=== PATIENT | female | born 1955 | race Caucasian/White ===

== ENCOUNTER 2017-02-11 02:37 | Inpatient (IN) | payer BC ==
--- NOTE | ~2017-02-11 | CO ---
Unit #: [id number] #: [id number] Patient: AVE YOST [id number] [facility]. [address] [place], [place] [address] [id number] I MR#: [id number] NAME: AVE YOST. ROOM: 322 Age: 61 Sex: F Admission Date: 02/11/2017 : 1955 Attending Physician: Davida Min M.D. Consultation Date: 02/11/2017 CONSULTATION REPORT REASON FOR CONSULTATION Anemia. HISTORY OF PRESENT ILLNESS Ms. Yost is a pleasant 61-year-old white female. The patient has presented with history of near syncope without actually having blackout as well as low blood pressure. In addition, she was found to have heme-positive stool and worsening anemia. She mentions to me that she had a colonoscopy in 10/[address] Rodriguez in [place], which was found to be normal. She also had an upper endoscopy at the same time. There is no history of overt GI bleed in the form of hematemesis, melena, or hematochezia. PAST MEDICAL HISTORY Significant for hypertension, hyperlipidemia, iron-deficiency anemia requiring transfusions, peripheral arterial disease, mild valvular heart disease followed up with Dr. Ortiz, esophageal stricture that required dilation, history of colonic polyps in the past. PAST SURGICAL HISTORY Included appendectomy, tonsillectomy, oophorectomy. MEDICATIONS At home included Protonix, lisinopril, Lipitor, Plavix, aspirin, Biotin, Chel, iron gluconate, vitamin B12. ALLERGIES She is allergic to hydrocodone, oxycodone, hydrochlorothiazide, Zofran, erythromycin, and sulfonamides. FAMILY HISTORY None of colon, pancreatic cancer, or liver disease. REVIEW OF SYSTEMS Detailed review of organ systems is significant for lightheadedness, but no true syncope, history of low blood pressure. No history of seizures or chest pain. No history of cough, expectoration, or hemoptysis. No history of dysuria, hematuria, or pyuria. No history of focal seizures or extremity weakness. Rest of review of organ systems is unremarkable. PHYSICAL EXAMINATION GENERAL: She is alert and oriented, and appears comfortable. VITAL SIGNS: Stable with a temperature of 97.7, pulse is 70 per minute and regular, respiratory rate is 16, blood pressure is 135/66. She weighs Unit #: [id number] #: [id number] Patient: AVE YOST 164 pounds and I do not have any baseline weight. HEENT: She has mild pallor. There being no icterus, lymphadenopathy, or peripheral edema. CARDIOVASCULAR: Normal heart sounds. No murmurs on auscultation. LUNGS: Reveal normal breath sounds. Good air entry. ABDOMEN: Soft and nontender. Liver and spleen are not palpable. Bowel sounds are normal. DIAGNOSTIC STUDIES LABORATORY RESULTS: Shows admission hemoglobin of 9.0, which dropped to 7.6. Baseline hemoglobin is not available. Red cell indices are normochromic and normocytic. White count and platelet counts are normal. Serum chemistry shows a BUN of 40 and creatinine 1.2. Albumin is 4.6. LFTs are otherwise normal. CLINICAL IMPRESSION The patient with anemia most likely from iron deficiency. We need iron studies and B12 folate levels, also obtain stool for occult blood. Also, the patient will require an upper endoscopy and a push enteroscopy tomorrow. There is little reason to repeat colonoscopy as this was done only recently in 10/2016. The purpose of the examination is to look for any angiodysplasia or AVMs, that might be missed in the previous examination. The above plan was discussed with the patient and she was reassured. Thank you for asking me to see this pleasant woman. I appreciate the consult. Dictated by... Monica Mendez/byron TD: 02/12/2017 18:32 JOB #: [id number] CC: Monica Sow M.D. CONSULTATION REPORT Page 1 of 1 X Robin Alvares MD CONSULTATION REPORT
--- NOTE | ~2017-02-11 | OR ---
Unit #: [id number] #: [id number] Patient: AVE YOST [id number] [facility]. [place] [id number] [facility]. [place], [place] [address] [id number] I MR#: [id number] NAME: AVE YOST. ROOM: 322 Date of Procedure: 02/12/2017 Admission Date: 02/11/2017 Surgeon: Robin Alvares M.D. : 1955 Attending Physician: Davida Min M.D. OPERATIVE REPORT PREOPERATIVE DIAGNOSES Iron-deficiency anemia. The patient was admitted with syncope. PROCEDURES PERFORMED Push enteroscopy and biopsy from the jejunum. POSTOPERATIVE DIAGNOSES Completely normal examination up to proximal jejunum. No angiodysplasias or mucosal abnormalities were present. RECOMMENDATIONS The patient is being given third dose of intravenous iron infusion tomorrow morning. She also needs 1 unit of packed cells tonight as the hemoglobin has dropped to 7.5. She can be discharged home tomorrow morning and should follow up with her GI doctor, Dr. Brown. SEDATION USED MAC. DESCRIPTION OF PROCEDURE Following detailed explanation of the potential risks and complications of an upper endoscopy and a push enteroscopy, namely perforation, bleeding, and complication related to sedation, the patient was brought to GI lab and laid in the left lateral decubitus position. A pediatric colonoscope was used for push enteroscopy. Lubricated tip of the Olympus video pediatric colonoscope was inserted through the oral cavity into the esophagus. The entire esophageal mucosa was examined and appeared normal. Z-line was nicely demarcated, there being no esophagitis or hiatus hernia. The scope was then advanced into the gastric cavity and the latter was insufflated. Mucosa of the fundus, body, and antrum was examined and appeared unremarkable. Pylorus was intubated with visualization of the normal duodenal bulb and second and third part of the duodenum. The scope tip was navigated and advanced past duodenum into proximal jejunum and again no mucosal abnormalities were noted. No angiodysplasias were seen. Biopsies were obtained from the deep descending duodenum and sent for histology to look for any evidence of partial villous atrophy or celiac disease. The scope was then withdrawn in the antrum and retroverted, whereupon incisura, cardia, and greater curve was examined and no additional findings were noted. The scope was then withdrawn in the distal esophagus. Entire esophageal mucosa was examined all the way up to pharynx. No additional findings were noted. The patient tolerated the procedure without any postprocedure complications. Unit #: [id number] #: [id number] Patient: AVE YOST Dictated by..Monica Balderrama/byron TD: 02/12/2017 17:15 JOB #: [id number] CC: Davida Min M.D. OPERATIVE REPORT Page 1 of 1 X Robin Alvares MD X PROCEDURE OPERATIVE NOTE
--- NOTE | ~2017-02-11 | CR72 ---
[facility] A Service of [facility] & [facility] RADIOLOGY TEXT RESULTS PATIENT: AVE YOST LOCATION: [facility] 322-01 : 53 UNIT #: [id number] AGE: [address]: Davida Min MD SEX: F ORDER DR: [id number] [facility] [address] [place], [place] [address] [id number] I MR#: [id number] Acc #: [id number] NAME: AVE YOST : 1955 SEX: F STUDY DATE/TIME: 02/11/2017 2:16 UNIT: CEDOF ROOM: 44057 STUDY DESCRIPTION: CR Chest Single View Portable Attending Physician: Ave Stark M.D. Ordering Physician: Shaquille Hassan D.O. Primary Care Physician: No Primary Care Physician MEDICAL IMAGING REPORT This report is preliminary unless electronic signature is present EXAM AP portable chest 02/11/2017 HISTORY 61-year-old female in the ED complaining of weakness and lightheadedness today. Low blood pressure. TECHNIQUE AP portable upright chest x-ray. FINDINGS Heart size and pulmonary vascularity are normal. The lungs are expanded and clear. No pulmonary infiltrate or pleural effusion is visible. Benign calcified granulomas in the right mid lung, right hilum and middle mediastinum. IMPRESSION No active disease. Dictated by... Alexy White M.D. THIS IS AN ELECTRONICALLY VERIFIED REPORT Alexy White M.D. at 02/11/2017 9:54 PM RGW/hiwot TD: 02/11/2017 07:26 JOB #: [id number] MEDICAL IMAGING REPORT Page 1 of 1 COPY
--- NOTE | ~2017-02-11 | DS ---
Unit #: [id number] #: [id number] Patient: AVE YOST [id number] [address] [address] [id number] I MR#: [id number] NAME: AVE YOST. ROOM: 322 Age: 61 Sex: F Admission Date: 02/11/2017 : 1955 Discharge Date: Attending Physician: Davida Min M.D. Primary Care Physician: Primary Care Physician No DISCHARGE SUMMARY DISCHARGE DIAGNOSES 1. Pbiti-nv-cdqwvcd iron deficiency anemia, status post EGD which is negative. 2. Lightheadedness secondary to low blood pressure on admission. 3. Hypertension. 4. History of chronic iron deficiency requiring iron infusions in the past, patient is following with Dr. Meza. 5. Hyperlipidemia. 6. Peripheral vascular disease status post bilateral carotid endarterectomies. 7. Mild vascular heart disease following with Dr. Ortiz. 8. Esophageal stricture requiring dilatation in the past. 9. History of colon polyps requiring snaring. She had last colonoscopy in last October which was normal. CONSULTATIONS Dr. Alvares PROCEDURES The patient had EGD which is normal. DIAGNOSTIC STUDIES LABORATORY: Sodium 134, potassium 4.0, creatinine 1.0, WBCs 9.0, hemoglobin 9.9, platelets 332. Ferritin 40. IMAGING: CAT scan of the head, no acute intracranial abnormalities. ALLERGIES Sulfa, hydrocodone, oxycodone, hydrochlorothiazide, erythromycin, simvastatin DISCHARGE MEDICATIONS 1. Chel 180 mg p.o. daily 2. Lipitor 40 daily 3. Lisinopril 20 mg p.o. daily 4. Ferrous gluconate 324 p.o. daily 5. Aspirin 81 mg daily 6. Plavix 75 daily 7. Protonix 40 daily 8. Biotin 5000 mcg p.o. daily 9. Vitamin B12 with calcium one tablet daily HOSPITAL COURSE [age] year old admitted because of dizziness found to have low Unit #: [id number] #: [id number] Patient: AVE YOST hemoglobin: 1. Bbshi-wa-ddpmwzo iron deficiency anemia, patient received blood transfusion and iron transfusion, the patient had EGD which is negative, patient seen by Dr. Alvares, he is okay for the patient to be discharged and also Dr. Alvares is okay for her to restart on her aspirin and Plavix. She is following with Dr. Meza for iron deficiency as an outpatient. I will request for her to follow with him again. 2. Dizziness, most likely secondary to low blood pressure but currently her dizziness is better and blood pressure stable. 3. Also her dizziness could be secondary to anemia. 4. Discharge home and follow with family physician in one week and follow with Dr. Meza in two weeks' time. Dictated by... Davida Min M.D. BUZZ/lionel TD: 02/13/2017 12:28 JOB #: [id number] DISCHARGE SUMMARY Page 1 of 1 X Davida Min MD X DISCHARGE SUMMARY
--- NOTE | ~2017-02-11 | CT71 ---
[facility] A Service of [facility] & [facility] RADIOLOGY TEXT RESULTS PATIENT: AVE YOST LOCATION: [facility] 322-01 : 53 UNIT #: [id number] AGE: [address]: Davida Min MD SEX: F ORDER DR: [id number] [facility] [address] [place], [place] [address] [id number] I MR#: [id number] Acc #: [id number] NAME: AVE YOST. : 1955 SEX: F STUDY DATE/TIME: 02/11/2017 2:57 UNIT: CEDOF ROOM: 25820 STUDY DESCRIPTION: CT Head Wo Contrast Attending Physician: Davida Min M.D. Ordering Physician: Shaquille Hassan D.O. Primary Care Physician: Primary Care Physician No MEDICAL IMAGING REPORT This report is preliminary unless electronic signature is present EXAM CT head, noncontrast, 02/11/2017 HISTORY 61-year-old female in the ED complaining of 2-day history of dizziness, headaches, lightheadedness and weakness. Low blood pressure is noted. TECHNIQUE CT examination of the head was performed without IV contrast. This CT exam was performed with one or more of the following radiation dose reduction techniques: automatic exposure control, adjustment of mA and/or kV according to patient size, and iterative reconstruction. FINDINGS The examination is negative. No evidence of intracranial hemorrhage, mass, mass effect, cerebral edema, hydrocephalus or additional abnormality. IMPRESSION Negative head CT examination. Dictated by... Alexy White M.D. THIS IS AN ELECTRONICALLY VERIFIED REPORT Alexy White M.D. at 02/11/2017 9:54 PM Dilan TD: 02/11/2017 08:01 JOB #: [id number] MEDICAL IMAGING REPORT Page 1 of 1 COPY
--- NOTE | ~2017-02-11 | EKG ---
PATIENT: R[address]IK[address] AVE UNIT #: [id number] Ventricular Rate: 77 BPM Atrial Rate: 77 BPM P-R Interval: 162 ms QRS Duration: 80 ms Q-T Interval: 384 ms QTC Calculation(Bezet): 434 ms P Fairton: 69 degrees Calculated R Fairton: 52 degrees Calculated T Fairton: 53 degrees Diagnosis Line: Normal sinus rhythm Diagnosis Line: Nonspecific ST abnormality Diagnosis Line: Otherwise normal ECG Diagnosis Line: No previous ECGs available Diagnosis Line: Confirmed by ENRIQUE BLAKE MD ([id number]) on 02/12/2017 Diagnosis Line: 9:34:10 AM INTERPRETING MD: HAYDEN VALENCIA
--- NOTE | ~2017-02-11 | HP ---
Unit #: [id number] #: [id number] Patient: AVE YOST L [id number] [address] [place], [place] [address] [id number] MR#: [id number] NAME: AVE YOST ROOM: Age: 61 Sex: F Admission Date: 02/11/2017 : 1955 Attending Physician: Shaquille Hassan D.O. Primary Care Physician: No Primary Care Physician HISTORY AND PHYSICAL CHIEF COMPLAINT Lightheadedness, low blood pressures, heme positive stool and worsening anemia. HISTORY OF PRESENT ILLNESS This pleasant 61-year-old female with hypertension, iron deficiency anemia, peripheral vascular disease is admitted for lightheadedness. The patient states that she was well until five days ago and she began to feel somewhat lightheaded, yesterday felt worse and checked her blood pressure. Her systolic blood pressures are running between eighties to low one hundreds. She denies any other symptoms with the above, particularly no chest pain, shortness of breath, palpitations or obvious GI bleeding. She presented to this emergency department last evening where her hemoglobin is 9 down from her usual hemoglobin of 10. She is heme positive on rectal exam. Labs are notable for a BUN of 40, although the patient states that she has been eating and drinking well. The patient does have a history of polyps in the colon which were snared but states that her last colonoscopy in October was negative. She did, however, require cauterization on an EGD in October and dilation of her esophagus. She does take Plavix and aspirin for peripheral vascular disease. PAST MEDICAL HISTORY 1. Hypertension. 2. Iron deficiency anemia requiring iron infusions in the past. 3. Hyperlipidemia. 4. Peripheral vascular disease status post bilateral carotid endarterectomies. 5. Mild valvular heart disease followed by Dr. Danyel Ortiz with negative stress test 2014. 6. Esophageal strictures requiring dilation. The patient states that on her last EGD she did require cauterization. 7. History of colonic polyps requiring snaring of the polyps. The patient reports that her last colonoscopy in October was clear. 8. Oral surgery. 9. Appendectomy. 10. Tonsillectomy. 11. Oophorectomy. SOCIAL HISTORY The patient lives with her dog and cat. She stopped smoking two years ago. He seldom drinks alcohol. Unit #: [id number] #: [id number] Patient: AVE YOST FAMILY HISTORY Negative for CAD. ALLERGIES Sulfa, hydrocodone, oxycodone, HCTZ, Zofran and erythromycin. HOME MEDICATIONS 1. Protonix 40 mg daily. 2. Lisinopril 20 mg daily. 3. Lipitor 40 mg daily. 4. Plavix 75 mg daily. 5. Aspirin 81 mg daily. 6. Biotin 5,000 mcg daily. 7. Chel 180 mg daily. 8. Iron gluconate 324 mg daily. 9. Vitamin B12 and calcium daily. REVIEW OF SYSTEMS Notable for lightheadedness, low blood pressure, hypertension, iron deficiency anemia, hyperlipidemia, peripheral vascular disease, polyps in the colon, esophageal strictures, above-mentioned surgeries. All other systems are reviewed and are otherwise negative. PHYSICAL EXAMINATION GENERAL APPEARANCE: A pleasant, mildly obese, 61-year-old female currently in no acute distress. VITAL SIGNS: Temperature 97.9. Pulse 86. Respirations 16. Blood pressure 166/64. O2 saturation 99% on room air. HEENT: Eyes: PERRLA. Extraocular muscles are intact. Pharynx is benign. NECK: Supple without adenopathy or thyromegaly. Bilateral carotid bruits noted. CHEST: Clear. CARDIAC: Normal S1, S2 without S3, S4 or murmur. ABDOMEN: Bowel sounds are present. No hepatosplenomegaly, tenderness or masses. RECTAL: Heme positive stool in the ER. EXTREMITIES: Without clubbing, cyanosis or edema. Pedal pulses are present. NEUROLOGIC: The patient is awake, alert, oriented. Cranial nerves are intact. Equal strength throughout. DIAGNOSTIC STUDIES LABORATORY: Hematocrit 27, hemoglobin 9 up from usual hemoglobin of about 10, normal white count and platelet count, normal coags. SMA-12: BUN 40. Cardiac markers are negative. Urinalysis negative. IMAGING: Head CT: No acute disease. Chest x-ray: No acute disease. CARDIOVASCULAR: EKG: Normal sinus rhythm, rate 77, some nonspecific ST wave abnormalities noted. ASSESSMENT 1. Recent lightheadedness. Blood pressures were low yesterday. The patient is heme positive with an elevated BUN and worsening anemia. I suspect that she has some upper GI bleeding occurring. She did undergo an EGD with cauterization 10/2016 and dilation of her esophagus. 2. History of polyps in the colon but reportedly negative colonoscopy, Unit #: [id number] #: [id number] Patient: AVE YOST 10/2016. 3. History of hypertension with low blood pressure. 4. Peripheral vascular disease status post bilateral carotid endarterectomies on aspirin and Plavix. 5. Hyperlipidemia. PLAN 1. IV fluids. 2. IV proton pump inhibitor. 3. Serial hemoglobin and hematocrit and obtain a type and screen. 4. Consult GI for possible EGD. 5. Obtain old EKG and echo from Dr. Danyel Ortiz. 6. Hold lisinopril for now. 7. SCDs for DVT prophylaxis. Dictated by Ave Stark M.D. AML/bd TD: 02/11/2017 05:59 JOB #: [id number] CC: Robyn Clinton M.D. HISTORY AND PHYSICAL Page [address] MD HISTORY AND PHYSICAL
[2017-02-11 02:31] LABS: POC - CKMB <1.0 ng/mL (0.0-7.9); POC - TROPONIN <0.05 ng/mL (<=0.05)
[2017-02-11 02:36] LABS: BASOPHIL# 0.1 X10e3 (0-0.3); EOSINOPHIL# 0.3 X10e3 (0-0.7); EOSINOPHIL% 3.1 % (0.0-7.0); LYMPHOCYTE# 3.2 X10e3 (1.0-3.5); LYMPHOCYTE% 32.8 % (17.0-45.0); MEAN CELL VOLUME 91.7 FL (83-96); MEAN CORPUSCULAR HEMOGLOBIN 30.6 PG (28-34); MEAN CORPUSCULAR HGB CONC 33.3 g/dL (30-36); MEAN PLATELET VOLUME 7.9 FL (6.5-11.5); MONOCYTE# 0.8 X10e3 (0-1.0); MONOCYTE% 7.9 % (3.0-12.0); NEUTROPHIL# 5.4 X10e3 (1.5-7.1); NEUTROPHIL% 55.2 % (40-75); PLATELET COUNT 361 X10e3 (140-420); RED BLOOD COUNT 2.94 X10e (3.90-5.30); WHITE BLOOD COUNT 9.8 X10e3 (4.0-10.5)
[2017-02-11 02:40] LABS: DIFF IND NO
[2017-02-11 02:50] LABS: PARTIAL THROMBOPLASTIN TIME 24.6 SECONDS (23.5-31.3)
[2017-02-11 02:57] LABS: URINE SOURCE CLEAN CATCH
[2017-02-11 03:01] LABS: URINE APPEARANCE CLEAR; URINE BILIRUBIN NEG (NEG); URINE BLOOD NEG (NEG); URINE COLOR YELLOW; URINE GLUCOSE NEG (NEG); URINE KETONE NEG (NEG); URINE LEUKOCYTE ESTERASE TRACE (NEG); URINE NITRATE NEG (NEG); URINE PROTEIN NEG (NEG); URINE SPECIFIC GRAVITY 1.009 (1.003-1.035); URINE UROBILINOGEN 0.2 MG/DL (NEG)
[2017-02-11 03:02] LABS: ALBUMIN SERUM 4.6 g/dL (3.5-5.0); BUN/CREATININE RATIO 33.33; CALCIUM SERUM 9.7 mg/dL (8.4-10.2); CREATININE SERUM 1.2 mg/dL (0.6-1.4); GLOM FILT RATE Estimated 48.2 mL/min (>60); MAGNESIUM 2.4 mg/dL (1.6-3.0); POTASSIUM 4.6 mmol/L (3.5-5.1); PROTEIN TOTAL SERUM 7.3 g/dL (6.0-8.3)
[2017-02-11 03:03] LABS: URBCS1 AUWI 0-2 /[HPF] (0-2); URINE BACTERIA AUWI NEG (NEGATIVE); URINE SQUAMOUS EPITHELIAL CELL NONE SEEN /[HPF]
[2017-02-11 03:03] LABS: BILIRUBIN, DIRECT 0.1 mg/dL (0.0-0.2); BILIRUBIN,TOTAL 0.1 mg/dL (0.2-2.0)
[2017-02-11 03:06] LABS: CULTURE INDICATED? NO
[2017-02-11] MEDS ORDERED: LIPITOR40 MG PO (05:06)
[2017-02-11] MEDS ORDERED: PRINIVIL20 M1 PO (05:06)
[2017-02-11] MEDS ORDERED: PROTONIX PO (05:06)
[2017-02-11] MEDS ORDERED: CLOPIDOGREL75 MG PO (05:07)
[2017-02-11] MEDS ORDERED: ALLEGRA ALLERG180 MG PO (05:07)
[2017-02-11] MEDS ORDERED: ST JOSEPH ASPIR81 M1 PO (05:07)
[2017-02-11] MEDS ORDERED: FERROUS GL324 ( 36 ) PO (05:07)
[2017-02-11] MEDS ORDERED: BIOTIN2500 MCG PO (05:07)
[2017-02-11] MEDS ORDERED: CALCI PO (05:09)
[2017-02-11] MEDS ORDERED: VITAMIN B12 PO (05:09)
[2017-02-11 05:19] LABS: POC - CKMB <1.0 ng/mL (0.0-7.9); POC - TROPONIN <0.05 ng/mL (<=0.05)
[2017-02-11 08:01] LABS: BASOPHIL# 0.1 X10e3 (0-0.3); BASOPHIL% 0.9 % (0-2.5); EOSINOPHIL# 0.2 X10e3 (0-0.7); EOSINOPHIL% 3.8 % (0.0-7.0); HEMATOCRIT 23.1 % (35.0-45.0); HEMOGLOBIN 7.6 gm/dL (12.0-16.0); LYMPHOCYTE# 1.8 X10e3 (1.0-3.5); LYMPHOCYTE% 28.9 % (17.0-45.0); MEAN CELL VOLUME 92.2 FL (83-96); MEAN CORPUSCULAR HEMOGLOBIN 30.6 PG (28-34); MEAN CORPUSCULAR HGB CONC 33.2 g/dL (30-36); MEAN PLATELET VOLUME 7.9 FL (6.5-11.5); MONOCYTE# 0.6 X10e3 (0-1.0); MONOCYTE% 10.1 % (3.0-12.0); NEUTROPHIL# 3.4 X10e3 (1.5-7.1); NEUTROPHIL% 56.3 % (40-75); PLATELET COUNT 284 X10e3 (140-420); RED CELL DISTRIBUTION WIDTH 13.9 % (11.0-15.5); WHITE BLOOD COUNT 6.1 X10e3 (4.0-10.5)
[2017-02-11 08:02] LABS: DIFF IND YES
[2017-02-11 08:22] LABS: CK TOTAL 53 IU/L (26-140)
[2017-02-11 08:24] LABS: ANISOCYTOSIS SL; HYPOCHROMIA SL; MICROCYTOSIS SL; PLATELET ESTIMATE NORMAL (NORMAL)
[2017-02-11 14:36] LABS: HEMATOCRIT 24.1 % (35.0-45.0); HEMOGLOBIN 8.1 gm/dL (12.0-16.0); MEAN CELL VOLUME 92.2 FL (83-96); MEAN CORPUSCULAR HEMOGLOBIN 30.9 PG (28-34); MEAN CORPUSCULAR HGB CONC 33.6 g/dL (30-36); MEAN PLATELET VOLUME 7.5 FL (6.5-11.5); RED BLOOD COUNT 2.62 X10e (3.90-5.30); RED CELL DISTRIBUTION WIDTH 14.1 % (11.0-15.5); WHITE BLOOD COUNT 5.3 X10e3 (4.0-10.5)
[2017-02-12 05:04] LABS: HEMATOCRIT 21.8 % (35.0-45.0); HEMOGLOBIN 7.2 gm/dL (12.0-16.0); MEAN CORPUSCULAR HEMOGLOBIN 30.5 PG (28-34); MEAN CORPUSCULAR HGB CONC 33.2 g/dL (30-36); MEAN PLATELET VOLUME 7.9 FL (6.5-11.5); RED BLOOD COUNT 2.37 X10e (3.90-5.30); RED CELL DISTRIBUTION WIDTH 14.3 % (11.0-15.5); WHITE BLOOD COUNT 4.7 X10e3 (4.0-10.5)
[2017-02-12 06:10] LABS: ALBUMIN SERUM 3.4 g/dL (3.5-5.0); BILIRUBIN,TOTAL 0.4 mg/dL (0.2-2.0); BUN/CREATININE RATIO 25.55; CALCIUM SERUM 8.3 mg/dL (8.4-10.2); CREATININE SERUM 0.9 mg/dL (0.6-1.4); GLOM FILT RATE Estimated 68.1 mL/min (>60); MAGNESIUM 2.3 mg/dL (1.6-3.0); POTASSIUM 4.4 mmol/L (3.5-5.1); PROTEIN TOTAL SERUM 5.6 g/dL (6.0-8.3)
[2017-02-13 06:07] LABS: HEMATOCRIT 29.8 % (35.0-45.0); MEAN CELL VOLUME 89.3 FL (83-96); MEAN CORPUSCULAR HEMOGLOBIN 29.7 PG (28-34); MEAN CORPUSCULAR HGB CONC 33.3 g/dL (30-36); MEAN PLATELET VOLUME 7.7 FL (6.5-11.5); RED BLOOD COUNT 3.34 X10e (3.90-5.30); RED CELL DISTRIBUTION WIDTH 15.2 % (11.0-15.5)
[2017-02-13 06:14] LABS: HEMOGLOBIN 9.9 gm/dL (12.0-16.0)
[2017-02-13 07:27] LABS: CALCIUM SERUM 8.7 mg/dL (8.4-10.2); GLOM FILT RATE Estimated 59.9 mL/min (>60)
== END 2017-02-13 14:44 | disposition home or self-care (01) | DRG 812 ==
LOC: CED 02:37 → CEDOF 02:38 → C3A PCU 10:45
PROVIDERS: Emergency Medicine; Internal Medicine; Internal Medicine Gastroenterology
PROC: 0DB98ZX Excision of Duodenum, Via Natural or Artificial Opening Endoscopic, Diagnostic (ICD-10-PCS; principal; 2017-02-12 16:38)
DX: D50.9 Iron deficiency anemia, unspecified (principal); I10 Essential (primary) hypertension; R42 Dizziness and giddiness; Z88.1 Allergy status to other antibiotic agents; Z88.5 Allergy status to narcotic agent; Z88.2 Allergy status to sulfonamides; Z88.8 Allergy status to other drugs, medicaments and biological substances; K21.9 Gastro-esophageal reflux disease without esophagitis; E78.5 Hyperlipidemia, unspecified; Z87.891 Personal history of nicotine dependence; I73.9 Peripheral vascular disease, unspecified; Z86.010 Personal history of colon polyps; Z90.49 Acquired absence of other specified parts of digestive tract; Z90.721 Acquired absence of ovaries, unilateral; Z79.02 Long term (current) use of antithrombotics/antiplatelets; Z79.82 Long term (current) use of aspirin
CPT/HCPCS: 36415; 70450; 71010; 80048; 80053; 80076; 81003; 82550; 82553; 82728; 82947; 83516; 83540; 83550; 83735; 84484; 85025; 85027; 85610; 85730; 86850; 86900; 86901; 86923; 88305; 93005; 99285; C9113; J2916; P9016

== ENCOUNTER → 2017-08-10 | Outpatient (CLI) | payer BC ==
[~2017-08-10] MED LIST: ALLEGRA ALLERG180 MG PO; BIOTIN2500 MCG PO; CALCI PO; CLOPIDOGREL75 MG PO; FERROUS GL324 ( 36 ) PO; LIPITOR40 MG PO; PRINIVIL20 M1 PO; PROTONIX PO; ST JOSEPH ASPIR81 M1 PO; VITAMIN B12 PO
--- NOTE | ~2017-08-10 | CR184 ---
[facility] A Service of [facility] & [facility] RADIOLOGY TEXT RESULTS PATIENT: AVE YOST LOCATION: [facility] : 53 UNIT #: [id number] AGE: [address]: ELI RICHARDSON MD SEX: F ORDER DR: [id number] [facility] [address] [place], [place] [address] [id number] O MR#: [id number] Acc #: [id number] NAME: AVE YOST : 1955 SEX: F STUDY DATE/TIME: 08/10/2017 15:49 UNIT: [facility] ROOM: STUDY DESCRIPTION: CR Lumbar Spine Min 4 Views Attending Physician: Eli Richardson M.D. Referring Physician: Eli Richardson M.D. Ordering Physician: Eli Richardson M.D. Primary Care Physician: Eli Richardson M.D. MEDICAL IMAGING REPORT This report is preliminary unless electronic signature is present EXAM Lumbar spine 5 views, 08/10/2017 HISTORY Low back pain without sciatica for 3 weeks. No known injury. FINDINGS 5 views of the lumbar spine demonstrate no fracture. The posterior vertebral body line is intact and there is no anterolisthesis or retrolisthesis. There is mild disc space narrowing at L5-S1. Marginal osteophytes are seen throughout the lumbar spine and there is degenerative change involving articular facets. Atherosclerotic calcification of the abdominal aorta is noted. IMPRESSION Degenerative change in the lumbar spine. No acute abnormality. Dictated by... Manny Woods M.D. THIS IS AN ELECTRONICALLY VERIFIED REPORT Manny Woods M.D. at 08/11/2017 10:32 AM MARIANELA/yin TD: 08/11/2017 02:44 JOB #: [id number] MEDICAL IMAGING REPORT Page 1 of 1 COPY
== END | disposition home or self-care (01) ==
LOC: CRAD 15:30
DX: M54.5 Low back pain (principal); M47.896 Other spondylosis, lumbar region
CPT/HCPCS: 72110